=== PATIENT | male | born 1980 | race Caucasian/White ===

== ENCOUNTER → 2021-04-26 10:35 | Outpatient (CLI) | payer BC, SELFPAY ==
--- NOTE | ~2021-04-26 | XR_ITS ---
XR lumbar spine 2-3V DATE: 04/26/2021 11:55 INDICATION: Low back pain TECHNIQUE: Standing AP, lateral and coned lateral lumbosacral views COMPARISON: None FINDINGS: There is levoscoliosis of the thoracolumbar spine. No fracture or bone destruction, spondylolisthesis. The lumbar and included lower thoracic pedicles a re intact. Lumbar and lumbosacral interspaces are relatively preserved. The sacroiliac joints are nor mal. Surgical clips, right upper quadrant, consistent with cholecystectomy IMPRESSION: Levoscoliosis of the thoracolumbar spine Reviewed, dictated and finalized at location B.
== END ==
PROVIDERS: PCP Family Medicine; Visit Provider Nurse Practitioner Family
DX: M41.9 Scoliosis, unspecified (principal)
CPT/HCPCS: 72100

== ENCOUNTER → 2022-01-25 15:12 | Outpatient (CLI) | payer BC, SELFPAY ==
--- NOTE | ~2022-01-25 | MR_ITS ---
EXAMINATION: MR elbow LT wo con DATE: 01/25/2022 16:07 INDICATION: Left elbow pain and medial epicondylitis. Rupture of left triceps with posterior left elb ow pain and swelling. TECHNIQUE: Magnetic resonance imaging (MRI) of the left elbow was performed without intravenous contr ast. Sequences included coronal, axial, and sagittal PD-weighted FS FSE and coronal, axial, and sagit mary PD-weighted FSE. COMPARISON: None FINDINGS: Osseous/other: Normal alignment. Normal marrow signal with no marrow edema, fracture, osteochondral lesion or abnor mal marrow replacing process. Articular cartilage appears normal. Tendons: There is prominent feathery muscular edema within the distal triceps muscle belly. The distal triceps tendon is normal. There is a 1.9 x 0.6 x 1.0 cm fluid collection along the proximal margin of the ol ecranon situated between the combined tendinopathy lateral and long heads of the triceps in the deepe r tendon and muscular insertion of the medial head . Differential would include other a small partial -thickness tear with no clearly defined proximal tear margin or bursitis of an intratendinous olecran on bursa. Biceps brachii and brachialis tendons are normal. Common flexor tendon wad is normal. The common extensor tendon wad is normal. Ligaments: The medial and lateral collateral ligament complexes are normal. Cubital tunnel: Cubital tunnel is unremarkable with normal signal and caliber of the ulnar nerve. Fluid: Soft tissue swelling about the elbow with prominent subcutaneous edema about the distal upper arm, el bow and extending to the forearm relatively sparing the anterolateral subcutaneous tissues. IMPRESSION: 1. Small fluid collection situated between the intact tendinous insertion of the lateral and long hea ds of the triceps and the deeper muscular and tendinous insertion of the short head of the triceps wi th prominent feathery muscular edema in the distal triceps and surrounding subcutaneous edema. Could not exclude a small partial-thickness intrasubstance tear however given the absence of a clearly defi angelita retracted tear margin or history of discrete trauma would favor bursitis of the intratendinous ol ecranon bursa which could be due to overuse, infection or potentially crystalline deposition diseases such as gout. 2. Small left elbow joint effusion. Bones and cartilage appear normal. Reviewed, dictated and finalized at location B. IMPRESSION: 1. Small fluid collection situated between the intact tendinous insertion of th e lateral and long heads of the triceps and the deeper muscular and tendinous i nsertion of the short head of the triceps with prominent feathery muscular yvette a in the distal triceps and surrounding subcutaneous edema. Could not exclude a small partial-thickness intrasubstance tear however given the absence of a silvestre migue defined retracted tear margin or history of discrete trauma would favor bu rsitis of the intratendinous olecranon bursa which could be due to overuse, inf ection or potentially crystalline deposition diseases such as gout. 2. Small left elbow joint effusion. Bones and cartilage appear normal.
== END ==
PROVIDERS: PCP Family Medicine; Visit Provider Family Medicine
DX: S46.312A Strain of muscle, fascia and tendon of triceps, left arm, initial encounter (principal); R60.0 Localized edema; M77.00 Medial epicondylitis, unspecified elbow
CPT/HCPCS: 73221

== ENCOUNTER → 2022-04-11 13:22 | Outpatient (CLI) | payer BC, SELFPAY ==
--- NOTE | ~2022-04-11 | MR_ITS ---
EXAMINATION: MR hip LT wo/w con DATE: 04/11/2022 14:18 INDICATION: Left hip pain. TECHNIQUE: Magnetic resonance imaging (MRI) of the left hip was performed without and with 20 mL Mul tihance intravenous contrast. Sequences included full-field axial PD-weighted FS FSE and T1-weighted FSE, coronal of the pelvis with PD-weighted FS FSE, small field of view of the left hip with axial P D-weighted FS FSE, sagittal PD-weighted FS FSE and coronal PD weighted FS FSE. Additional radial T1-w eighted FGR oriented orthogonal to the acetabular rim were obtained for evaluation of the labrum. Pos tcontrast full-field axial and small [id number] coronal T1-weighted FS FSE sequences were also obt ained. COMPARISON: None FINDINGS: Bones/labrum/cartilage: Alignment is normal. No avascular necrosis. Moderate to severe osteoarthritis at the left hip with c artilage loss approaching full-thickness with severe nonuniform joint space narrowing at the anterosu perior aspect of the left hip joint space. Mild increased subarticular fluid signal at the anterosupe rior left acetabulum. There is a tear of the anterosuperior to posterior left acetabular labrum. Ther e is mild increased fluid signal and enhancement surrounding a slightly serpiginous low signal intens ity line deep to the articular cortex at the posterior iliac side of the left sacroiliac joint consis tent with an acute to subacute fracture. No loss of T1 signal surrounding the low signal intensity li ne to suggest a pathologic marrow replacing process. No other lesions suspicious for fracture identif ied. No erosions identified to suggest an inflammatory arthritis. Mild lower lumbar facet osteoarthri tis. Fluid: Enhancing synovitis along the periphery of a moderate-sized left hip joint effusion which extends int o the iliopsoas bursa physiologic amount fluid at the right hip joint. Soft tissues: Normal and symmetric muscle bulk and signal in the pelvis and visualized proximal thighs. The iliopso as, gluteal and proximal hamstring tendons are normal. Limited evaluation of visceral organs of the p lianne is unremarkable. No pathologically enlarged pelvic/inguinal lymphadenopathy. IMPRESSION: 1. Moderate to severe left hip osteoarthritis with diffuse tear of the left acetabular labrum. 2. Moderate sized left hip joint effusion with extension to the left iliopsoas bursa. 3. Marrow edema and mild enhancement surrounding subarticular irregular line of low signal at the pos terior aspect of the iliac side of the left sacroiliac joint suspicious for an acute to subacute stre ss versus insufficiency fracture. Reviewed, dictated and finalized at location A. IMPRESSION: 1. Moderate to severe left hip osteoarthritis with diffuse tear of the left lavinia tabular labrum. 2. Moderate sized left hip joint effusion with extension to the left iliopsoas bursa. 3. Marrow edema and mild enhancement surrounding subarticular irregular line of low signal at the posterior aspect of the iliac side of the left sacroiliac desiree int suspicious for an acute to subacute stress versus insufficiency fracture.
== END ==
PROVIDERS: PCP Family Medicine
DX: M16.12 Unilateral primary osteoarthritis, left hip (principal); M25.452 Effusion, left hip
CPT/HCPCS: 73723; A9577

== ENCOUNTER 2022-05-12 11:28 | Emergency (ER) | payer BC, SELFPAY ==
--- NOTE | ~2022-05-12 | CT_ITS ---
EXAMINATION: CT abdomen pelvis w con DATE: 05/12/2022 15:58 INDICATION: Right abdominal pain, nausea TECHNIQUE: Computed tomography (CT) of the abdomen and pelvis was performed with 100 CC Omnipaque 350 intravenous contrast. Automated exposure control and iterative reconstruction technique were employe d. Exam dose: 1243.16 mGy-cm total exam DLP. COMPARISON: None. FINDINGS: The lung bases are clear. Normal heart size. No pericardial effusion. There are scattered small hepatic cysts, largest approximately 6 mm. Status post cholecystectomy. No bile duct or pancreatic duct dilatation. No pancreatic mass lesion or calcification. Normal splenic s ize. Normal morphology. The glands. No renal mass lesion or urinary tract calculus or hydroureteronephrosis. Normal caliber of the abdominal aorta. No intraperitoneal or retroperitoneal or pelvic mass lesion or adenopathy or ascites. The urinary bladder and prostate gland are unremarkable. No bowel obstruction, bowel wall thickening, pneumatosis or intraperitoneal free air is detected. No CT evidence of appendicitis. There are scattered shotty nonenlarged mesenteric and right lower quadra nt, nonspecific. No suspicious osteolytic or osteoblastic lesions. IMPRESSION: Scattered small hepatic cysts Reviewed, dictated and finalized at Location [facility]. Reviewed, dictated and finalized at location A.
[2022-05-12 11:41] VITALS: BP 144/76; PULSE 70; RESP 20; TEMP 36.6; O2SAT 100
[2022-05-12 11:52] LABS: Basophils Absolute Auto 0.1 K/mm3 (0.0-0.1); Basophils Percent Auto 1.2 % (0.2-1.2); Eosinophils Absolute Auto 0.1 K/mm3 (0-0.3); Eosinophils Percent Auto 1.4 % (0-4.4); Hematocrit 46.8 % (42.0-52.0); Immature Granulocyte Absolute 0.17 K/mm3 (0.00-0.031); Immature Granulocyte Percent A 2.5 % (0-0.5); Lymphocytes Absolute Auto 2.58 K/mm3 (0.9-3.2); Lymphocytes Percent Auto 37.3 % (18.3-44.2); Mean Corpuscular HGB Conc 34.2 g/dl (32-36); Mean Corpuscular Hemoglobin 29.1 pg (26-34); Mean Corpuscular Volume 85.2 fl (80-100); Mean Platelet Volume 9.5 fl (7.4-10.4); Monocytes Absolute Auto 0.4 K/mm3 (0.1-0.6); Monocytes Percent Auto 6.4 % (2.6-8.5); Neutrophils Absolute Auto 3.6 K/mm3 (1.3-6.7); Neutrophils Percent Auto 51.2 % (45.5-73.1); Platelet Count Result 276 k/mm3 (150-375); Red Blood Count 5.49 M/mm3 (4.6-6.20); Red Cell Distribution Width 13.2 % (11.5-14.5); White Blood Count 6.9 K/mm3 (4.5-10.0)
[2022-05-12 12:04] LABS: Alanine Aminotransferase 42 U/L (6-50); Albumin Level 4.8 g/dL (3.5-5.1); Alkaline Phosphatase 83 U/L (38-126); Anion Gap 14 mmol/L (8-16); Aspartate Amino Transferase 32 U/L (17-59); Bilirubin,Total 0.6 mg/dL (0.2-1.3); Blood Urea Nitrogen 14 mg/dL (9-20); Calcium 9.4 mg/dL (8.4-10.2); Carbon Dioxide 22 mmol/L (22-30); Chloride 106 mmol/L (98-107); Estimated CRCL calculation 138 ml/min; Estimated Glomerular Filt Rate > 60; Glucose 107 mg/dL (65-110); Lipase 184 U/L (23-300); Potassium 4.8 mmol/L (3.4-5.0); Sodium 142 mmol/L (137-145)
[2022-05-12 15:00] LABS: Add Urine Microscopic? NO; Appearance Urine Clear (Clear); Bilirubin Urine Negative (Negative); Blood Urine Negative (Negative); Color Urine Yellow (Yellow); Glucose Urine UA Negative (Negative); Ketones Urine Negative (Negative); Leukocyte Esterase Ur Negative LEU/UL (Negative); Nitrate Urine Negative (Negative); Protein Urine Negative (Negative); Specific Grav Ur 1.023 (1.001-1.035); Urobilinogen Urine Negative mg/dL (<2.0)
--- NOTE | 2022-05-12 15:29 | ED.ABDPAIN ---
HPI - Abdominal Pain General Chief Complaint: Abdominal Pain Stated Complaint: right flank/abd pain Time Seen by Provider: 05/12/22 15:17 Source: RN notes reviewed History of Present Illness HPI narrative: Patient presents emergency room from home for abdominal pain. Patient states abdominal pain began this morning. The pain is located in the right upper quadrant and radiates around to the back. The pain is described as cramping in nature and will come and go he states that he did try taking omeprazole for the pain with minimal relief. He denies any fevers or chills chest pain shortness of breath nausea vomiting diarrhea or any other symptoms Related Data Allergies Allergy/AdvReac Type Severity Reaction Status Date / Time No Known Allergies Allergy Verified 05/12/22 15:41 Review of Systems Review of Systems: Gen.: Denies fevers or chills ENT: Denies congestion Respiratory: Denies shortness of breath or cough CV: Denies chest pain or palpitations GI: HPI denies burning, urgency, frequency or hematuria Musculoskeletal: Denies back pain or muscle pain Neuro: Denies numbness, tingling, weakness or focal weakness Skin: Denies rash Except as documented, all other systems reviewed and negative [facility] Past Medical History Medical History (Updated 05/12/22 @ 16:24 by Nirav Jefferson DO) Patient denies significant medical history Surgical History Surgical History (Updated 05/12/22 @ 15:29 by Nirav Jefferson DO) History of cholecystectomy Social History Social History (Updated 05/12/22 @ 15:29 by Nirav Jefferson DO) Smoking status: Never smoker Exam Narrative: APPEARANCE: No acute distress, nontoxic, resting in bed HEENT: Normocephalic, atraumatic, OMM RESPIRATORY: No respiratory distress, clear to auscultation bilaterally with no rhonchi wheezing or rales CARDIOVASCULAR: RRR s murmur ABDOMINAL: Soft nondistended tender palpation right upper quadrant no tenderness left upper quadrant, left lower quadrant right lower quadrant no rebound or guard MUSCULOSKELETAl: Moves all extremities. No clubbing, cyanosis or edema. NEURO: Awake and alert. Following commands, speech normal, no focal deficits SKIN:: Warm, dry. Normal Color PSYCHIATRIC: Normal affect/mood Course Course Emergency Course: Patient states that they are feeling much better at this time. States abdominal pain has resolved. Repeat abdominal exam shows the patient's abdomen to be soft and nontender. Discussed with patient results of workup and diagnosis. Discussed need for follow-up with primary care physician, reasons to return to the emergency department in proper use of medication. Patient understands and agrees to current treatment plan Vital Signs Vital signs: Vital Signs Temperature 97.9 F 05/12/22 11:41 Pulse Rate 70 05/12/22 11:41 Respiratory Rate 20 05/12/22 11:41 Blood Pressure 144/76 H 05/12/22 11:41 Pulse Oximetry 100 05/12/22 11:41 Oxygen Delivery Room Air 05/12/22 11:41 Temperature 97.9 F 05/12/22 11:41 Pulse Rate 66 05/12/22 15:44 Respiratory Rate 16 05/12/22 15:44 Blood Pressure 145/84 H 05/12/22 15:44 Pulse Oximetry 98 05/12/22 15:44 Oxygen Delivery Room Air 05/12/22 11:41 MDM - Abdominal Pain MDM Narrative Medical decision making narrative: Patient's abdomen is soft without significant pain or signs of surgical abdomen on serial exams. Lab and x-ray evaluations are reviewed and patient is felt to be a reasonable candidate for outpatient management. Patient was instructed as to limitations of x-ray and laboratory evaluation and encouraged to return to ED or primary physician for repeat exam in 12 hours if continued or worsening pain Lab Data Result diagrams: 05/12/22 11:47 05/12/22 11:47 Labs: Lab Results 05/12/22 05/12/22 05/12/22 Range/Units 11:47 11:47 14:17 WBC 6.9 (4.5-10.0) K/mm3 RBC 5.49 (4.6-6.20) M/mm3 Hgb 16.0 (14.
[2022-05-12] MEDS: KETOROLAC 30 MG/ML VIAL (*BKC) IV PUSH (15:37)
[2022-05-12] MEDS: SODIUM CHLORIDE 0.9% IV 1,000 ML 999 ML IV CONT (15:40)
[2022-05-12 15:44] VITALS: BP 145/84; PULSE 66; RESP 16; O2SAT 98
[2022-05-12 16:47] VITALS: PULSE 65; RESP 16; O2SAT 100
== END 2022-05-12 16:50 | disposition home or self-care (01) ==
PROVIDERS: Emergency Medicine; Emergency Provider Emergency Medicine; PCP Family Medicine
DX: R10.11 Right upper quadrant pain (principal); Z90.49 Acquired absence of other specified parts of digestive tract
CPT/HCPCS: 36415; 74177; 80053; 81003; 83690; 85025; 96361; 96374; 99284; J1885; J7030; Q9967

== ENCOUNTER 2025-05-03 11:44 | Emergency (ER) | payer BC, SELFPAY ==
[2025-05-03 12:05] VITALS: BP 133/81; PULSE 76; RESP 16; TEMP 36.6; O2SAT 98
--- NOTE | 2025-05-03 12:15 | ED.EYEPROB ---
HPI - Eye Problem General Chief complaint: Eye Problems Stated complaint: Eye Irritation patient presents to the [facility] with complaints of cold-like symptoms with nasal congestion and mild headaches that began a little over week ago the symptoms are significantly improving. Patient reports the left eye yesterday well he had his contacts at work did start to get irritated and was watering. Patient reports taking out his contacts and wearing his glasses but every time he tried to shut his eye the eye started to significantly water and felt like something was scraping across to the eyeball. Patient did not put in contacts today and has increased soreness to left eye, watering, and sensitivity to light. Related Data Home Medications ?Medication ?Instructions ?Recorded ?Confirmed ?Last Taken ?Type testosterone cypionate 200 mg/mL mg 05/03/25 Unknown History intramuscular oil Allergies Allergy/AdvReac Type Severity Reaction Status Date / Time No Known Allergies Allergy Verified 05/12/22 15:41 Review of Systems Constitutional: Constitutional: Reports as per HPI, Denies chills, Denies fatigue, Denies fever(s) and Denies weakness Eyes: Eyes: Reports as per HPI, Denies change in vision and Reports photophobia Comments: Left eye watering and irritation ENT: Reports as per HPI, Denies vertigo, Denies dizziness, Reports nasal congestion and Denies sore throat Cardiovascular: Cardiovascular: Reports no additional cardiovascular complaints Respiratory: Respiratory: Reports as per HPI, Reports chest congestion, Reports cough, Denies dyspnea and Denies wheezing Gastrointestinal: Gastrointestinal: Reports no additional gastrointestinal complaints Genitourinary: Genitourinary: Reports no additional male genitourinary complaints Musculoskeletal: Musculoskeletal: Reports as per HPI, Denies myalgias and Denies arthralgias Integumentary/Breasts: Skin/Breast: Reports as per HPI, Denies erythema and Denies rash Neurologic: Reports as per HPI, Denies vertigo, Denies dizziness, Reports headache(s) and Denies weakness Psychiatric: Psychiatric: Reports no additional psychiatric complaints Endocrine: Endocrine: Reports no additional endocrine complaints Hematologic/Lymphatic: Hematologic/Lymphatic: Reports no additional hematologic/lymphatic complaints Allergic/Immunologic: Allergic/Immunologic: Reports no additional allergic/immunologic complaints [facility] Past Medical History Medical History (Updated 05/03/25 @ 12:27 by DE ParraC) Patient denies significant medical history Surgical History Surgical History (Updated 05/12/22 @ 15:29 by Nirav Jefferson, DO) History of cholecystectomy Social History Social History (Updated 05/12/22 @ 15:29 by Nirav Jefferson, DO) Smoking status: Never smoker Exam Const: General: healthy appearing and no acute distress Nutritional Appearance: well nourished Orientation/consciousness: patient oriented x3 Limitations: no limitations HENMT: Head: normal to inspection Ears: external ears normal and TM's normal bilaterally Face/Nose/Sinus: Normal external nose present and Normal nares present Face and sinus: normal facial exam and sinuses nontender Mouth: Yes Normal oral and palatal mucosa present, Yes lip normal and Yes moist mucous membranes Throat: posterior oropharynx normal Eyes: Conjunctivae: conjunctival abnormality ( injected, watering noted) left Pupils: Equal, round and reactive pupils present EOM: EOMs intact bilaterally Direct Ophthalmoscopy: photophobia Other: Topical anesthetic was instilled with good anesthesia using 1gtt of opth anesthetic agent (tetracaine). Fluorescein stain of the L eye was performed with uptake of dye of 5 o'clock- moderate sized corneal abrasion noted. No epithelial defect was noted. NO FB, ulcer or dendritic lesions. Upper lid was everted and no FB or lesions were noted. NO Mario sign. Normal saline irrigation eye solution was performed and the patient tolerated the procedure well, no adverse reaction or complications. Noted intraocular pressure readings. Neck: Neck: normal visual inspection and no lymphadenopathy Resp: Effort & Inspection: normal respiratory effort Auscultation: clear to auscultation bilaterally Cardio: Rate: regular rate Rhythm: regular rhythm Skin: General skin exam: normal color Rashes: no rashes Wounds: no wounds Neuro: General: patient oriented x3 and moves all extremities Cranial nerves: Yes Nystagmus not present Speech: normal speech Gait exam (Neuro): Normal gait present Psych: Mental Status: mental status grossly normal Affect: normal affect Attitude: cooperative Course Course Level of Care: Express Care Visit Vital Signs Vital signs: Vital Signs Temperature 97.9 F 05/03/25 12:05 Pulse Rate 76 05/03/25 12:05 Respiratory Rate 16 05/03/25 12:05 Blood Pressure 133/81 05/03/25 12:05 Pulse Oximetry 98 05/03/25 12:05 Oxygen Delivery Room Air 05/03/25 12:05 Temperature 97.9 F 05/03/25 12:05 Pulse Rate 76 05/03/25 12:05 Respiratory Rate 16 05/03/25 12:05 Blood Pressure 133/81 05/03/25 12:05 Pulse Oximetry 98 05/03/25 12:05 Oxygen Delivery Room Air 05/03/25 12:05 MDM - Eye Problem MDM Narrative Medical decision making narrative: The patient was evaluated by myself in the [facility] care. History is obtained from patient who is an independent historian and physical exam was performed. Available medical records were reviewed at this time. Exam findings show no acute concerns or changes; patient is non-toxic appearing and is in no distress. Patient is appropriate for outpatient treatment and follow-up. I have evaluated and discussed social determinants of health with the patient that could potentially impact subsequent diagnosis and treatment plans. Differential diagnosis and treatment plan were discussed with the patient. Patient agrees with discussion and after shared medical decision making agrees with plan of care. All questions were answered to the patient's satisfaction. Differential Diagnosis Differential diagnosis: Likely corneal abrasion, conjunctivitis, periorbital cellulitis, subconjunctival hemorrhage and glaucoma Medical Records Attestation: I reviewed the patient's medical records. Discharge Plan Discharge Clinical Impression: Corneal abrasion Qualifiers: Laterality: left Patient Disposition: Home Condition: Stable Instructions: Antibiotic Form, Corneal Abrasion (ED), How to Use Eye Drops (ED) Additional Instructions: Corneal abrasions will heal in 1-2 days. Keep your eye shut and wearing sunglasses or staying in low light to avoid light sensitivity. Do not touching or rubbing your eye or use a fabric patch (pirate's patch) You may take Tylenol or ibuprofen for pain Follow-up with PCP or enologist if condition is not improving in 2-3days. Patient Language: Filipino Prescriptions: New tobramycin 0.3 % drops 1 drp EACH EYE Q4H 7 Days Qty: 5 0RF No Action testosterone cypionate 200 mg/mL oil famotidine [Pepcid AC] 20 mg tablet 20 mg PO DAILY Qty: 14 0RF Follow-up/Referrals: PHYSICIAN,STOCK DEALER [Primary Care Provider, Internal Medicine] Time of Disposition: 12:27
== END 2025-05-03 12:34 | disposition home or self-care (01) ==
PROVIDERS: Emergency Provider Nurse Practitioner Family
DX: S05.02XA Injury of conjunctiva and corneal abrasion without foreign body, left eye, initial encounter (principal); X58.XXXA Exposure to other specified factors, initial encounter
CPT/HCPCS: 99213; A9270; G0463